=== PATIENT | male | born 1940 | race Caucasian/White ===

== ENCOUNTER → 2017-12-26 | Outpatient (CLI) | payer OTHER | END | disposition home or self-care (01) | LOC: SHCH 13:41 | PROVIDERS: ATTEND Internal Medicine Cardiovascular Disease | DX: I10 Essential (primary) hypertension (principal); R94.31 Abnormal electrocardiogram [ECG] [EKG] | CPT/HCPCS: 93306 ==

== ENCOUNTER → 2018-01-02 | Outpatient (CLI) | payer OTHER ==
[~2018-01-02] VITALS: Ht 177.8 cm; Wt 92.1 kg
[~2018-01-02] MED LIST: REGADENOSON 0.4 MG/5 ML PF SYG IVP SCH
== END | disposition home or self-care (01) ==
LOC: SHCH 08:14
PROVIDERS: ATTEND Internal Medicine Cardiovascular Disease
DX: I10 Essential (primary) hypertension (principal); R94.31 Abnormal electrocardiogram [ECG] [EKG]
CPT/HCPCS: 78452; 93017; 96374; A9500 ×2; J2785

== ENCOUNTER → 2018-01-11 | Outpatient (CLI) | payer OTHER | END | disposition home or self-care (01) | LOC: SHCH 08:35 | PROVIDERS: ATTEND Internal Medicine Cardiovascular Disease | DX: I73.9 Peripheral vascular disease, unspecified (principal) | CPT/HCPCS: 93925 ==

== ENCOUNTER 2018-10-03 17:54 | Observation (INO) | payer OTHER ==
[~2018-10-03] VITALS: Ht 182.9 cm; Wt 85.3 kg
[2018-10-03] MEDS ORDERED: ACETAMINOPHEN 325 MG TAB PO PRN (18:30)
[2018-10-03] MEDS: CEFTRIAXONE SODIUM 1 GM IVP SCH (18:30)
[2018-10-03] MEDS: IPRATROPIUM/ALBUTEROL SULFATE 3 ML SOLUTION IH SCH ×2 (18:45→23:59)
[2018-10-03] MEDS ORDERED: METHYLPREDNISOLONE SOD SUCC 40MG/ML 1ML ONE (18:47)
[2018-10-03] MEDS ORDERED: CEFTRIAXONE SODIUM 1 GM ONE (18:48)
[2018-10-03] MEDS ORDERED: SODIUM CHLORIDE 0.9% 50 ML IV ONE (18:48)
[2018-10-03 18:50] LABS: BASOPHILS % (AUTO) 0.3 % (0.0-5.0); EOSINOPHILS % (AUTO) 0.2 % (0.0-8.0); HEMATOCRIT 39.1 % (42-54); MEAN CORPUSCULAR HEMOGLOBIN 31.8 pg (27.0-33.0); MEAN CORPUSCULAR HGB CONC 33.8 g/dL (32.0-36.0); MEAN CORPUSCULAR VOLUME 94.1 fL (79-99); MONOCYTES % (AUTO) 6.5 % (3.0-13.0); PLATELET COUNT (AUTO) 172 K/uL (130-400); RED BLOOD CELL COUNT(AUTO) 4.15 MIL/uL (4.50-6.20); WHITE BLOOD COUNT (AUTO) 13.3 K/uL (4.8-10.8)
[2018-10-03 18:59] LABS: CREATININE 1.1 mg/dL (0.5-1.5); POTASSIUM 3.4 mmol/L (3.5-5.1)
[2018-10-03] MEDS: METHYLPREDNISOLONE SOD SUCC 125MG/2ML VIAL IVP SCH (19:00)
[2018-10-03 19:03] LABS: ALBUMIN 2.7 g/dL (3.5-5.0); BILIRUBIN,TOTAL 1.1 mg/dL (0.2-1.0); TOTAL PROTEIN, SERUM 6.6 g/dL (6.0-8.3)
[2018-10-03 20:00] VITALS: BP 108/58
[2018-10-03] MEDS: OSELTAMIVIR PHOSPHATE 75 MG CAP PO SCH (20:36)
[2018-10-03] MEDS: ATORVASTATIN CALCIUM 10 MG TABLET PO SCH (20:53)
[2018-10-03] MEDS: ENOXAPARIN SODIUM 30 MG/0.3 ML SQ SCH (20:53)
[2018-10-03] MEDS: DEXTROSE 5 %-0.45 % NACL 1,000 ML IV SCH (20:53)
[2018-10-04 00:04] VITALS: BP 157/77
[2018-10-04] MEDS: METHYLPREDNISOLONE SOD SUCC 125MG/2ML VIAL IVP SCH ×3 (03:23→17:41)
[2018-10-04] MEDS: DEXTROSE 5 %-0.45 % NACL 1,000 ML IV SCH ×3 (03:26→23:56)
[2018-10-04 04:00] VITALS: BP 135/70
[2018-10-04 04:41] LABS: HEMATOCRIT 37.1 % (42-54); MEAN CORPUSCULAR HEMOGLOBIN 33.2 pg (27.0-33.0); MEAN CORPUSCULAR HGB CONC 34.5 g/dL (32.0-36.0); MEAN CORPUSCULAR VOLUME 96.1 fL (79-99); PLATELET COUNT (AUTO) 202 K/uL (130-400); RED BLOOD CELL COUNT(AUTO) 3.85 MIL/uL (4.50-6.20); RED CELL DISTRIBUTION WIDTH 12.6 % (11.0-15.5); WHITE BLOOD COUNT (AUTO) 11.8 K/uL (4.8-10.8)
[2018-10-04 04:57] LABS: ALBUMIN 2.5 g/dL (3.5-5.0); BILIRUBIN,TOTAL 0.5 mg/dL (0.2-1.0); CREATININE 0.9 mg/dL (0.5-1.5); POTASSIUM 3.4 mmol/L (3.5-5.1); TOTAL PROTEIN, SERUM 6.4 g/dL (6.0-8.3)
[2018-10-04 07:49] VITALS: BP 131/94
[2018-10-04] MEDS: IPRATROPIUM/ALBUTEROL SULFATE 3 ML SOLUTION IH SCH ×4 (07:49→23:16)
[2018-10-04] MEDS ORDERED: POTASSIUM CHLORIDE 10% ELIXIR 20 MEQ/15 ML UDCUP PO PRN (08:30)
[2018-10-04] MEDS ORDERED: POTASSIUM CHLORIDE 20MEQ/100ML 100 ML IV PRN (08:30)
[2018-10-04] MEDS ORDERED: LIDOCAINE HCL-MPF 1% 2ML VIAL IVP PRN (08:30)
[2018-10-04] MEDS: TAMSULOSIN HCL 0.4 MG CAP.ER.24H PO SCH (08:40)
[2018-10-04] MEDS: OSELTAMIVIR PHOSPHATE 75 MG CAP PO SCH ×2 (08:40→20:19)
[2018-10-04] MEDS: ENOXAPARIN SODIUM 30 MG/0.3 ML SQ SCH ×2 (08:40→20:19)
[2018-10-04] MEDS ORDERED: PHARMACY COMMUNICATION MISC SCH (08:45)
[2018-10-04] MEDS ORDERED: PANT40TA25 PO (08:48)
[2018-10-04] MEDS ORDERED: BENA20TA10 PO (08:48)
[2018-10-04] MEDS ORDERED: METO-391 PO (08:48)
[2018-10-04] MEDS ORDERED: PRAV40TA3 PO (08:48)
[2018-10-04] MEDS ORDERED: TAMS-1 PO (08:48)
[2018-10-04] MEDS: METOPROLOL TARTRATE 25 MG TAB PO SCH ×2 (09:00→20:18)
[2018-10-04 12:00] VITALS: BP 130/63
[2018-10-04 16:00] VITALS: BP 142/68
[2018-10-04] MEDS: CEFTRIAXONE SODIUM 1 GM IVP SCH (17:41)
[2018-10-04 20:00] VITALS: BP 136/72
[2018-10-04] MEDS: ATORVASTATIN CALCIUM 10 MG TABLET PO SCH (20:18)
[2018-10-04] MEDS: POTASSIUM CHLORIDE 20 MEQ ERTAB PO PRN (20:22)
[2018-10-05] VITALS: BP 148/70
[2018-10-05] MEDS: POTASSIUM CHLORIDE 20 MEQ ERTAB PO PRN (00:45)
[2018-10-05] MEDS: METHYLPREDNISOLONE SOD SUCC 125MG/2ML VIAL IVP SCH (03:13)
[2018-10-05 04:00] VITALS: BP 149/80
[2018-10-05 04:33] LABS: MEAN CORPUSCULAR HEMOGLOBIN 31.9 pg (27.0-33.0); MEAN CORPUSCULAR HGB CONC 33.5 g/dL (32.0-36.0); MEAN CORPUSCULAR VOLUME 95.2 fL (79-99); PLATELET COUNT (AUTO) 208 K/uL (130-400); RED BLOOD CELL COUNT(AUTO) 3.79 MIL/uL (4.50-6.20); RED CELL DISTRIBUTION WIDTH 13.1 % (11.0-15.5); WHITE BLOOD COUNT (AUTO) 15.3 K/uL (4.8-10.8)
[2018-10-05 04:52] LABS: CREATININE 0.8 mg/dL (0.5-1.5); POTASSIUM 4.1 mmol/L (3.5-5.1)
[2018-10-05] MEDS: IPRATROPIUM/ALBUTEROL SULFATE 3 ML SOLUTION IH SCH ×2 (07:00→11:23)
[2018-10-05 07:30] VITALS: BP 145/76
[2018-10-05] MEDS: METOPROLOL TARTRATE 25 MG TAB PO SCH (08:58)
[2018-10-05] MEDS: TAMSULOSIN HCL 0.4 MG CAP.ER.24H PO SCH (08:58)
[2018-10-05] MEDS: OSELTAMIVIR PHOSPHATE 75 MG CAP PO SCH (08:58)
[2018-10-05] MEDS: ENOXAPARIN SODIUM 30 MG/0.3 ML SQ SCH (08:59)
[2018-10-05 11:00] VITALS: BP 150/79
== END 2018-10-05 11:50 | disposition home or self-care (01) ==
LOC: EDH 17:54 → EDHIP 19:27 → 4BH 20:00
PROVIDERS: ADMIT Internal Medicine; ATTEND Internal Medicine
DX: J10.1 Influenza due to other identified influenza virus with other respiratory manifestations (principal); I10 Essential (primary) hypertension; J20.9 Acute bronchitis, unspecified; A41.9 Sepsis, unspecified organism; J44.9 Chronic obstructive pulmonary disease, unspecified; E78.5 Hyperlipidemia, unspecified; E86.0 Dehydration; E87.1 Hypo-osmolality and hyponatremia; E87.6 Hypokalemia; G93.40 Encephalopathy, unspecified; Z79.899 Other long term (current) drug therapy
CPT/HCPCS: 36415 ×3; 71045; 80048; 80053 ×2; 85025; 85027 ×2; 94640 ×7; 94664; 96361 ×3; 96372 ×2; 96374; 96375; 96376 ×2; 99284; G0378 ×40; J0696 ×2; J1650 ×4; J2920; J2930 ×4; J7042 ×2

== ENCOUNTER 2018-12-14 07:24 | Day surgery (SDC) | payer OTHER ==
[2018-12-12 16:20] VITALS: BP 145/67
[2018-12-12 16:44] LABS: BASOPHILS % (AUTO) 0.9 % (0.0-5.0); EOSINOPHILS % (AUTO) 0.8 % (0.0-8.0); HEMATOCRIT 41.4 % (42-54); LYMPHOCYTES % (AUTO) 18.5 % (21.0-51.0); MEAN CORPUSCULAR HEMOGLOBIN 32.9 pg (27.0-33.0); MEAN CORPUSCULAR HGB CONC 34.2 g/dL (32.0-36.0); MEAN CORPUSCULAR VOLUME 96.2 fL (79-99); NEUTROPHILS % (AUTO) 70.8 % (40.0-77.0); PLATELET COUNT (AUTO) 248 K/uL (130-400); RED BLOOD CELL COUNT(AUTO) 4.31 MIL/uL (4.50-6.20); RED CELL DISTRIBUTION WIDTH 14.1 % (11.0-15.5); WHITE BLOOD COUNT (AUTO) 8.6 K/uL (4.8-10.8)
[2018-12-12 16:58] LABS: CREATININE 0.9 mg/dL (0.5-1.5); POTASSIUM 4.4 mmol/L (3.5-5.1)
[~2018-12-14] VITALS: Ht 177.8 cm; Wt 86.7 kg
[2018-12-14] VITALS (15 sets, daily range): BP systolic 122–151; BP diastolic 64–89
[~2018-12-14 07:24] MED LIST changes: +AMLO10TA7 PO; +BENA20TA10 PO; +IBUP-2077 PO; +METO-391 PO; +OMEP20CA10 PO; +PRAV40TA3 PO; -REGADENOSON 0.4 MG/5 ML PF SYG IVP SCH; +TAMS-1 PO
[2018-12-14] MEDS: LEVOFLOXACIN 500 MG/D5W 100 ML 100 ML IV SCH ×2 (09:00→09:20)
[2018-12-14] MEDS ORDERED: LACTATED RINGERS 1000ML 1,000 ML IV ONE (09:04)
[2018-12-14] MEDS ORDERED: PROPOFOL 10 MG/ML 20ML VIAL IV ONE (09:16)
[2018-12-14] MEDS ORDERED: LIDOCAINE PF 2% 5ML ABBOJECT ONE (09:16)
[2018-12-14] MEDS ORDERED: FENTANYL CITRATE PF 50 MCG/1 ML 2ML VIAL ONE (09:16)
[2018-12-14] MEDS ORDERED: EPHEDRINE SULFATE 50 MG/ML AMPULE ONE (09:50)
[2018-12-14] MEDS ORDERED: OPIUM/BELLADONNA ALKALOIDS 1 EACH SUPP.RECT RC ONE (10:27)
--- NOTE | 2018-12-14 11:20 | NUR ---
RECEIVED AWAKE ,ALERT ,NO COMPLAINTS OF PAIN ,WITH WEAVER INTACT WITH RED TINGE OUTPUT,,,SECURED TO LEG,,, AT BEDSIDE ,STARTED GIVING INSTRUCTIONS TO AND PATIENT----IN REGARDS TO CHANGING OF WEAVER AND CARE AT HOME ,ENCOURAGED PO FLUIDSVERBALIZES UNDERSTANDING,,,CALL REYES IN REACH
[2018-12-14] MEDS ORDERED: PHENAZOPYRIDINE HCL 200 MG TABLET ONE (11:44)
--- NOTE | 2018-12-14 12:25 | NUR ---
HOME VIA W/C,EMPTIED LEG BAG PRIOR TO LEAVING,RED TINGE OUTPUT ,PATIENT AND STATE FEEL COMFORTABLE WITH INSTRUCTIONS,.,
== END 2018-12-14 12:25 | disposition home or self-care (01) ==
LOC: DAH 07:24
PROVIDERS: ATTEND Urology
DX: N40.1 Benign prostatic hyperplasia with lower urinary tract symptoms (principal); R35.0 Frequency of micturition; R39.14 Feeling of incomplete bladder emptying; R39.15 Urgency of urination; I10 Essential (primary) hypertension; E78.00 Pure hypercholesterolemia, unspecified; K21.9 Gastro-esophageal reflux disease without esophagitis; M19.90 Unspecified osteoarthritis, unspecified site; Z98.890 Other specified postprocedural states; Z79.899 Other long term (current) drug therapy; Z87.891 Personal history of nicotine dependence
CPT/HCPCS: 36415; 52648; 80048; 85025; 87088; 88305; 93005; A4344; A4354; A4358; A4510; A4600; J1956; J2001; J2704; J3010; J3490; J7030; J7120